=== PATIENT | male | born 1960 | race Native Hawaiian/Other Pacific Islander ===

== ENCOUNTER 2018-03-15 18:00 | Emergency (ER) | payer OTHER ==
[~2018-03-15] VITALS: Ht 177.8 cm; Wt 101.2 kg
[~2018-03-15 18:00] MED LIST: AMBIEN5 MG PO; CLON0.5T36 PO
[2018-03-15 18:18] VITALS: TEMP 98.1
[2018-03-15 19:27] LABS: POTASSIUM 3.6 mmol/L (3.6-5.2)
[2018-03-15 20:13] VITALS: BP 136/80
== END 2018-03-15 20:13 | disposition home or self-care (01) ==
LOC: ED 18:00
PROVIDERS: Allergy & Immunology
DX: S61.230A Puncture wound without foreign body of right index finger without damage to nail, initial encounter (principal); W46.0XXA Contact with hypodermic needle, initial encounter
CPT/HCPCS: 36415; 80048; 99283

== ENCOUNTER 2019-04-29 21:32 | Emergency (ER) | payer OTHER ==
[~2019-04-29] VITALS: Ht 177.8 cm; Wt 104.8 kg
[2019-04-29 22:25] LABS: PLATELET COUNT 171 K/uL (142-355)
[2019-04-29 22:37] LABS: POTASSIUM 3.3 mmol/L (3.6-5.2)
[2019-04-29 23:24] VITALS: BP 109/69; TEMP 98.2
== END 2019-04-29 23:24 | disposition home or self-care (01) ==
LOC: ED 21:32
PROVIDERS: Emergency Medicine
DX: I10 Essential (primary) hypertension (principal)
CPT/HCPCS: 80053; 85027; 93005; 99283

== ENCOUNTER 2020-07-29 17:42 | Outpatient (CLI) | payer OTHER | END 2020-07-29 20:58 | disposition home or self-care (01) | LOC: RAD 17:42 | PROVIDERS: ATTEND Registered Nurse | DX: R06.02 Shortness of breath (principal) ==